=== PATIENT | male | born 1990 | race African-American/Black ===

== ENCOUNTER 2018-02-01 00:40 | Emergency (ER) | payer MEDICAID ==
[~2018-02-01] VITALS: Ht 180.3 cm; Wt 79.4 kg
[2018-02-01] MEDS ORDERED: ABILIFY2 MG ORAL (00:48)
[2018-02-01 01:15] VITALS: BP 119/82
--- NOTE | 2018-02-01 01:44 | Emergency Room Report ---
History of Present Illness General Chief Complaint: Substance Abuse Source: Patient Present Illness HPI Is a 27-year-old male who said he was diagnosed with schizophrenia but a couple weeks ago. His posterior on Abilify but has not taking it. He said his smoke marijuana and crystal methamphetamine tonight. He said he was on a good nervous breakdown. He said he fell happy. He ran into a police cruiser and because he was talking with a pressure speech, so they brought him here. Patient denies suicidal thoughts or homicidal thought. Denies any trauma. No fever chills but no nausea no vomiting. Said he lives smoking methamphetamine. Does not want to quit. Has not taken his psych medication. Does have a prescription. Allergies: Coded Allergies: No Known Allergies (Unverified , 02/01/18) Patient History Past Medical History: see triage record, old chart reviewed Past Surgical History: none Family History: none Social History: tobacco use, drug use Immunizations: other Reviewed Nursing Documentation: PMH: Agreed; PSxH: Agreed Nursing Documentation-PM Past Medical History: No History, Except For Review of Systems ENT: Denies: sore throat Cardiovascular: Denies: chest pain, palpitations Gastrointestinal/Abdominal: Denies: nausea, vomiting, diarrhea Musculoskeletal: Denies: back problems Skin: Denies: rash Neurological: Denies: FERRER, seizures All Other Systems: negative except mentioned in HPI Physical Exam Vital Signs Date Time Temp Pulse Resp B/P (MAP) Pulse Ox O2 Delivery O2 Flow Rate FiO2 02/01/18 00:45 99.3 110 18 119/82 100 99.3 vitals with tachycardia Sp02 EP Interpretation: reviewed, normal General Appearance: alert/responsive, no apparent distress, non-toxic Head: normocephalic, atraumatic Eyes: PERRL, EOMI ENT: oropharynx normal Neck: supple/symm/no masses Respiratory: effort normal, no rhonchi, no wheezing Cardiovascular: no murmur, gallop, rub Gastrointestinal: non-tender, no mass, non-distended, no rebound/guarding, normal bowel sounds Musculoskeletal: gait & station normal Neurologic: oriented x3, sensory intact, motor strength/tone normal Psychiatric: no delusions, other - tangential thoughts Suicide Risk Assessment: Suicidal Ideation: No Had intent to initiate attempt: No Pt's plan for suicide attempt: No Has means to complete attempt: No Skin: no rash, normal palpation Medical Decision Making Diagnostic Impression: Primary Impression: Psychosis Qualified Codes: F29 - Unspecified psychosis not due to a substance or known physiological condition Additional Impression: Methamphetamine abuse ER Course Patient with acute psychosis secondary to drug abuse. He is otherwise stable. No criteria for 5150. We'll discharge home. Last Vital Signs Date Time Temp Pulse Resp B/P (MAP) Pulse Ox O2 Delivery O2 Flow Rate FiO2 02/01/18 00:45 99.3 110 18 119/82 100 99.3 Status: improved Disposition: HOME, SELF-CARE Condition: Stable Referrals: NOT CHOSEN IPA/,REFERRING (PCP) Patient Instructions: Stimulant Use Disorder-Methamphetamines Additional Instructions: Stop using drugs. Take your methamphetamine. Follow-up with mental health within a week. Return if symptom worsen. Ramos Mcfadden MD Feb 01, 2018 01:44
[2018-02-01 02:19] VITALS: BP 117/75
== END 2018-02-01 02:21 | disposition home or self-care (01) ==
LOC: EDBD 00:40 → EMR 00:59
DX: F29 Unspecified psychosis not due to a substance or known physiological condition (principal); F15.10 Other stimulant abuse, uncomplicated
CPT/HCPCS: 99283